=== PATIENT | female | born 1935 | race Caucasian/White ===

== ENCOUNTER 2023-05-15 11:17 | Emergency (ER) | payer OTHER, MEDICAID ==
[~2023-05-15] VITALS: Ht 157.5 cm; Wt 49.0 kg
[~2023-05-15 11:17] MED LIST: ACET325C6 PO; AMLO10TA88 PO; APIX5TAB PO; DONE-51 PO; HYDR-3917 PO; LEVO75CA5 PO; MELA3TAB69 PO; NITR0.4T47 SL; PARO-147 PO; POTA-197 PO
[2023-05-15 11:24] VITALS: BP_SYST 152
[2023-05-15 11:58] LABS: BASOPHILS # (AUTO) 0.1 K/uL (0.0-0.2); BASOPHILS % (AUTO) 1.1 % (0.0-2.0); EOSINOPHILS # (AUTO) 0.4 K/uL (0.0-0.4); EOSINOPHILS % (AUTO) 6.7 % (0.0-4.0); HEMATOCRIT 36.8 % (36-48); HEMOGLOBIN 12.2 g/dL (12.0-16.0); LYMPHOCYTES # (AUTO) 1.8 K/uL (1.0-5.5); LYMPHOCYTES % (AUTO) 29.6 % (20.5-51.5); MEAN CORPUSCULAR HEMOGLOBIN 30 pg (27-31); MEAN CORPUSCULAR HGB CONC 33 % (32-36); MEAN CORPUSCULAR VOLUME 90 fL (79.0-98.0); MONOCYTES # (AUTO) 0.6 K/uL (0.0-1.0); MONOCYTES % (AUTO) 9.9 % (1.7-9.3); NEUTROPHILS # (AUTO) 3.2 K/uL (1.8-7.7); NEUTROPHILS % (AUTO) 52.7 % (40.0-70.0); PLATELET COUNT (AUTO) 266 K/uL (130-430); RED BLOOD CELL COUNT(AUTO) 4.11 MIL/uL (4.2-6.2); RED CELL DISTRIBUTION WIDTH 14.2 % (9.0-15.0); WHITE BLOOD COUNT (AUTO) 6.1 K/uL (4.8-10.8)
--- NOTE | 2023-05-15 12:00 | NUR ---
RECEIVED PT FROM [facility] FRAIRE. PT LISSETTE ALS FOR PAIN IN NARE AND GENERALIZED WEAKNESS. PT IS AAOX2. ON R/A. DENIES N/V/D/C. DISTAL PULSES NORMAL, SKIN WARM, CDI. DENIES PAIN.
[2023-05-15 12:02] LABS: ANION GAP 6 (5-15); CALCIUM 9.2 mg/dL (8.4-11.0); CHLORIDE 104 mmol/L (98-107); GLUCOSE 84 mg/dL (74-106); UREA NITROGEN, BLOOD 19 mg/dL (8-21)
[2023-05-15 12:10] LABS: ALANINE AMINOTRANSFERASE 13 U/L (12-78); ALBUMIN 3.3 g/dL (3.4-4.8); ASPARTATE AMINOTRANSFERASE 21 U/L (10-37); TOTAL BILIRUBIN 0.5 mg/dL (0.0-1.0)
--- NOTE | 2023-05-15 12:20 | NUR ---
URINE OBTAINED BY STRAIGHT CATH, STERILE TECHNIQUE AND TAKEN TO LAB.
[2023-05-15 12:43] LABS: INR 1.2 (0.8-1.2); PROTHROMBIN TIME 12.4 SECS (9.5-12.5)
--- NOTE | 2023-05-15 12:45 | NUR ---
# 22 gauge angiocath placed to ARELI. Use of asceptic technique. Opsite placed over site. Blood return noted. Flushed with 10 cc of normal saline. No evidence of infiltration noted. Patient tolerated well.
[2023-05-15 12:54] LABS: BILIRUBIN,URINE NEGATIVE (NEGATIVE); BLOOD, URINE 3+ (NEGATIVE); CLARITY/URINE SL CLOUDY (CLEAR); COLOR,URINE YELLOW (YELLOW); GLUCOSE,URINE NEGATIVE (NEGATIVE); KETONES,URINE NEGATIVE (NEGATIVE); LEUKOCYTE ESTERASE ,URINE 3+ (NEGATIVE); NITRITE, URINE POSITIVE (NEGATIVE); PH,URINE 6.5 (5.0-8.0); PROTEIN URINE 1+ (NEGATIVE); UROBILINOGEN,URINE 0.2 (0.2-1.0)
[2023-05-15 13:14] LABS: BACTERIA,URINE MANY /HPF (None Seen); RBC,URINE 20-50 /HPF (0-3); WBC,URINE >100 /HPF (0-3)
[2023-05-15] MEDS ORDERED: SULFAMETHOXAZOLE/TRIMETHOPR DS 1 TABLET PO ONE (13:15)
[2023-05-15] MEDS ORDERED: NACL 0.9% 1,000 ML IV ONE (13:15)
[2023-05-15] MEDS ORDERED: NITR-85 PO (13:19)
--- NOTE | 2023-05-15 13:25 | NUR ---
MACROBID PO GIVEN AND TOLERATED WELL. PT GIVEN BEDSIDE SWALLOW EVAL AND PASSED EASILY. IVF NS 1000ML BOLUS INITITATED.
[2023-05-15] MEDS ORDERED: NITROFURANTOIN MONOHYD/M-CRYST 100 MG CAPSULE (MacroBID) PO ONE (13:30)
--- NOTE | 2023-05-15 14:40 | NUR ---
CONTACTED PT'S SISTER JOSEPH ROCHA AND RECEIVED CONSENT TO TRANSFER BACK TO [facility], REPORT CALLED TO FACILITY, [facility]. PT ETA 1500.
--- NOTE | 2023-05-15 15:18 | NUR ---
Note undone in EDM - 05/15/23 at 1531 by [email or web address] Patient given written and verbal discharge instructions and verbalizes understanding. ER discussed with patient the results and treatment provided. Patient in stable condition. ID arm band removed. IV catheter removed intact and dressing applied, no active bleeding. Rx of MACROBID given. Patient educated on pain management and to follow up with PMD. Pain Scale 0/10. Opportunity for questions provided and answered. Medication side effect fact sheet provided.
[2023-05-15 15:21] VITALS: BP_SYST 147
--- NOTE | 2023-05-15 15:30 | NUR ---
Patient given written and verbal discharge instructions and verbalizes understanding. ER MD discussed with patient the results and treatment provided. Patient in stable condition. ID arm band removed. IV catheter removed intact and dressing applied, no active bleeding. Rx of MACROBID PO given. Patient educated on pain management and to follow up with PMD. Pain Scale 0/10. Opportunity for questions provided and answered. Medication side effect fact sheet provided. PT TAKEN VIA AMBULANCE AND TRANSFERRED BACK TO [facility].
== END 2023-05-15 15:30 ==
LOC: SED 11:17
DX: N39.0 Urinary tract infection, site not specified (principal); R53.1 Weakness; J34.89 Other specified disorders of nose and nasal sinuses; R53.83 Other fatigue; E11.9 Type 2 diabetes mellitus without complications; I10 Essential (primary) hypertension; Z88.0 Allergy status to penicillin; Z91.018 Allergy to other foods; Z88.8 Allergy status to other drugs, medicaments and biological substances; Z79.899 Other long term (current) drug therapy
CPT/HCPCS: 99285; 96360; 71045; 80053; 81000; 85025; 85610; 85730; 87086; 84484; 36415; 93005; J7030

== ENCOUNTER 2023-05-19 14:21 | Emergency (ER) | payer OTHER, MEDICAID ==
[~2023-05-19] VITALS: Ht 165.1 cm; Wt 45.4 kg
[~2023-05-19 14:21] MED LIST changes: +NITR-85 PO
[2023-05-19 14:32] VITALS: BP_SYST 118; PULSE 77; RESP 20; TEMP 98.3; O2SAT 95
[2023-05-19 15:34] LABS: ANION GAP 14 (5-15); CALCIUM 9.8 mg/dL (8.4-11.0); CHLORIDE 103 mmol/L (98-107); CREATININE 1.47 mg/dL (0.55-1.30); GLUCOSE 116 mg/dL (74-106); UREA NITROGEN, BLOOD 21 mg/dL (8-21)
[2023-05-19 15:38] LABS: ALANINE AMINOTRANSFERASE 14 U/L (12-78); ALBUMIN 3.9 g/dL (3.4-4.8); AMYLASE 78 U/L (0-100); ASPARTATE AMINOTRANSFERASE 23 U/L (10-37); LIPASE 112 U/L (73-393); TOTAL BILIRUBIN 0.5 mg/dL (0.0-1.0)
[2023-05-19 15:41] LABS: INR 1.2 (0.8-1.2); PROTHROMBIN TIME 12.7 SECS (9.5-12.5)
[2023-05-19 15:42] LABS: BASOPHILS % (AUTO) 0.3 % (0.0-2.0); EOSINOPHILS # (AUTO) 0.1 K/uL (0.0-0.4); EOSINOPHILS % (AUTO) 0.9 % (0.0-4.0); HEMATOCRIT 38.7 % (36-48); HEMOGLOBIN 12.9 g/dL (12.0-16.0); LYMPHOCYTES # (AUTO) 0.9 K/uL (1.0-5.5); LYMPHOCYTES % (AUTO) 8.5 % (20.5-51.5); MEAN CORPUSCULAR HEMOGLOBIN 30 pg (27-31); MEAN CORPUSCULAR HGB CONC 33 % (32-36); MEAN CORPUSCULAR VOLUME 89 fL (79.0-98.0); MONOCYTES # (AUTO) 0.8 K/uL (0.0-1.0); MONOCYTES % (AUTO) 7.7 % (1.7-9.3); NEUTROPHILS # (AUTO) 8.9 K/uL (1.8-7.7); NEUTROPHILS % (AUTO) 82.6 % (40.0-70.0); PLATELET COUNT (AUTO) 266 K/uL (130-430); RED BLOOD CELL COUNT(AUTO) 4.37 MIL/uL (4.2-6.2); RED CELL DISTRIBUTION WIDTH 14.2 % (9.0-15.0); WHITE BLOOD COUNT (AUTO) 10.8 K/uL (4.8-10.8)
[2023-05-19] MEDS ORDERED: MORPHINE 2 MG/ML INJ. SYRINGE IVP ONE (18:45)
[2023-05-19] MEDS ORDERED: ONDANSETRON HCL 4 MG/2 ML VIAL IVP ONE (18:45)
[2023-05-19] MEDS ORDERED: ONDANSETRON HCL 4 MG/2 ML VIAL IM ONE (20:00)
[2023-05-19] MEDS ORDERED: MORPHINE 2 MG/ML INJ. SYRINGE IM ONE (20:00)
[2023-05-19 21:08] VITALS: BP_SYST 143; PULSE 80; RESP 20; TEMP 98; O2SAT 98
== END 2023-05-19 21:08 | disposition home or self-care (01) ==
LOC: SED 14:21
DX: K92.0 Hematemesis (principal); R10.9 Unspecified abdominal pain; E11.9 Type 2 diabetes mellitus without complications; I10 Essential (primary) hypertension; Z88.0 Allergy status to penicillin; Z88.8 Allergy status to other drugs, medicaments and biological substances; Z91.018 Allergy to other foods; Z79.899 Other long term (current) drug therapy
CPT/HCPCS: 99285; 74176; 80053; 82150; 83690; 85025; 85610; 85730; 86886; 86900; 86901; 36415; 76376; 96372; 83605; J2405; J2270